=== PATIENT | male | born 1960 ===

== ENCOUNTER 2017-10-30 09:31 | Day surgery (SDC) | payer MEDICARE, BC ==
[2015-03-03 09:09] VITALS: BMI 29.1
--- NOTE | 2017-10-30 11:56 | RAD ---
Chest x-ray two views History: Preadmission testing. Comparison: None available. Findings: No focal infiltrate or effusion. Heart size within normal limits. Degenerative changes in the spine. Impression: No focal infiltrate or effusion.
[2017-10-30] MEDS ORDERED: Lactated Ringer's 500 ML IV ONE ×3 (12:05→14:15)
[2017-10-30] MEDS ORDERED: Midazolam 2 MG/2 ML VIAL ONE (12:06)
[2017-10-30] MEDS ORDERED: Propofol 10 mg/ml Inj (20 ML) ONE (12:06)
[2017-10-30] MEDS ORDERED: Lidocaine 2% Jelly (Uro-Jet) ONE (12:10)
[2017-10-30] MEDS ORDERED: ceFAZolin IV 1 gm in Dextrose 1 GM/50 ML BAG IVPB ONE (12:10)
[2017-10-30] MEDS ORDERED: Gentamicin 80 mg in 0.9% NS 160 MG/200 ML BAG IVPB ONE (12:23)
[2017-10-30] MEDS ORDERED: Phenylephrine 10 mg/ml Inj ONE (12:44)
[2017-10-30] MEDS ORDERED: Oxycodone/Acetaminophen 5/325 mg Tab PO PRN (12:54)
[2017-10-30] MEDS ORDERED: HYDROmorphone 0.5 mg/0.5 ml ISec IVP PRN (13:00)
[2017-10-30 15:03] VITALS: RESP 18; O2SAT 100
[2017-10-30 16:22] VITALS: BP 108/60; PULSE 88; TEMP 97.8
--- NOTE | 2017-11-01 23:01 | CARD ---
APPROVED REPORT EKG Measurement Heart [id number] <Conclusion> Normal sinus rhythm Normal ECG
--- NOTE | 2017-11-18 03:12 | OP ---
PROCEDURE DATE: 10/30/2017 PREOPERATIVE DIAGNOSES: Urinary retention, voiding dysfunction, incomplete bladder emptying, decreased flow stream, irritative and obstructive complaints, and hematuria. POSTOPERATIVE DIAGNOSES: Urinary retention, voiding dysfunction, incomplete bladder emptying, decreased flow stream, irritative and obstructive complaints, and hematuria. PROCEDURE: Transurethral resection of the prostate. BLOOD LOSS: Less than 20 mL. COMPLICATIONS: There were no complications. SPECIMEN: Sent out is prostate chips. INDICATIONS: See history and physical for further details. This is a very pleasant gentleman here for the above stated procedure. He has had multiple procedures done on his prostate before. We discussed risks, benefits and treatment alternatives, and he is now here for the above procedure. DESCRIPTION OF PROCEDURE: After obtaining informed consent, the patient was placed on the table. Routine monitor was placed. Time-out was called to confirm the patient and positioning. Antibiotic prophylaxis was given. We introduced the resectoscope, a continuous slow resectoscope was used. We identified all landmarks, the verumontanum was identified, the bladder neck was identified, the ureteral orifice identified. We began our resection, there was tremendous amount of tissue as mentioned before, he has previously had work done, resected it wide, wide open. We stopped between 5 and 7, and then we turned out attention between 7 and 11, and then 5 to 1, and then we turned ourselves to the roof, and we kept checking our landmarks, the bladder neck after the verumontanum and he is wide open. We controlled the hemostasis with electrocautery. We evacuated all the chips that are present and sent this down to Pathology. At this point, we inserted a Han catheter via the urethra with a mild amount of traction and CBI irrigation. The patient tolerated the procedure well without complication. Teddy Alexander MD
--- NOTE | 2017-11-18 05:06 | HP ---
UROLOGY ADMISSION HISTORY AND PHYSICAL REASON FOR ADMISSION: For a transurethral resection of the prostate. HISTORY OF PRESENT ILLNESS: Mr. Christiansen is a very pleasant gentleman who we know quite well. He has had multiple voiding complaints before. He has incomplete bladder emptying, decreased flow stream and urinary retention. We had previously done GreenLight laser approximately about a year ago. The past medical and surgical history, otherwise unremarkable. No history of an [place], CVA. His medical doctor is . MEDICATIONS: As listed. ALLERGIES: None. REVIEW OF SYSTEMS: Listed above. Noncontributory. No weight loss, chest pain, shortness of breath or the like. SOCIAL HISTORY: He comes to the office sometimes with his mother who is recently seen. PHYSICAL EXAMINATION: GENERAL: A well-nourished male, in no apparent distress. VITAL SIGNS: Within normal limits. LUNGS: Clear. ABDOMEN: Overall soft and nontender. No flank mass was appreciated. LABORATORY DATA: See chart. DIAGNOSES: Voiding dysfunction, incomplete bladder emptying, urinary obstruction, irritated and obstructed urinary complaints. ASSESSMENT AND PLAN: The patient will be taken to the operating room today for a transurethral resection of prostate. I have discussed with the patient risks, benefits, and treatment alternatives. I discussed the risks specifically of incontinence after so much work on the prostate. I also discussed ejaculatory dysfunction. He already reports that he has not been ejaculating fluid. Discussed risk of scar tissue, risk of recurrence, risk of failure, and also discussed a cystoscopic finding that there is not a tremendous amount of tissue, although there is some obstructive tissue. I have discussed all these risks and benefits with patient. I have discussed medication. The plan is as follows; 1. Antibiotic prophylaxis. 2. Transurethral resection of prostate, and then further plans will follow. Risks, benefits were discussed with the patient and we discussed the use of electrocautery resection versus GreenLight. We are going to plan for electrocautery. After discussing all the options, risks, benefits, and treatment alternatives, the patient is in agreement with plan to proceed. Teddy Alexander MD
== END 2017-10-30 16:10 | disposition home or self-care (01) ==
LOC: C.SDS 09:31
PROVIDERS: ATTEND Urology
DX: N40.1 Benign prostatic hyperplasia with lower urinary tract symptoms (principal); R33.9 Retention of urine, unspecified; R33.8 Other retention of urine
CPT/HCPCS: 36415; 52601; 71020; 86850; 86900; 88305; 93005; J0690; J1170; J1580; J7120